=== PATIENT | male | born 1970 | race Caucasian/White ===

== ENCOUNTER 2017-09-03 20:06 | Emergency (ER) | payer OTHER ==
[~2017-09-03] VITALS: Ht 182.9 cm; Wt 136.5 kg
[2017-09-03] MEDS ORDERED: ONDANSETRON HCL INJ 2 MG/ML VIAL IV STA (20:26)
[2017-09-03] MEDS ORDERED: SODIUM CHLORIDE 0.9% 1000ML 1,000 ML IV ONE ×2 (20:30→21:30)
[2017-09-03] MEDS ORDERED: METFORMIN HCL1000 MG (20:40)
[2017-09-03] MEDS ORDERED: NOVOLOG100 UNIT/1 (20:40)
[2017-09-03] MEDS ORDERED: TARCEVA25 MG (20:40)
[2017-09-03 22:06] VITALS: BP 130/72
== END 2017-09-03 22:07 | disposition home or self-care (01) ==
LOC: FSED 20:35
DX: K52.9 Noninfective gastroenteritis and colitis, unspecified (principal); E11.65 Type 2 diabetes mellitus with hyperglycemia; Z79.4 Long term (current) use of insulin; E03.9 Hypothyroidism, unspecified; R31.29 Other microscopic hematuria; D69.6 Thrombocytopenia, unspecified; E78.5 Hyperlipidemia, unspecified; I10 Essential (primary) hypertension
CPT/HCPCS: 80048; 85025; 87400; 96360; 96374; 99283; J2405